=== PATIENT | female | born 1975 | race Caucasian/White ===

== ENCOUNTER 2020-10-15 22:29 | Emergency (ER) | payer BC, SELFPAY ==
[2020-10-15 22:31] VITALS: BP 201/113; PULSE 110; RESP 20; TEMP 37.1; O2SAT 99; BMI 37.5
[2020-10-15 22:34] VITALS: BP 201/113; PULSE 121; O2SAT 96
--- NOTE | 2020-10-15 22:34 | ED.GENADULT ---
HPI - General Adult General Chief complaint: Chest Pain Stated complaint: HEART IS RAISING Time Seen by Provider: 10/15/20 22:34 Source: patient Mode of arrival: Ambulatory Limitations: no limitations History of Present Illness HPI narrative: Patient is a 44-year-old female here for evaluation of 3 days of a jittery feeling and palpitations and lightheadedness. She was seen at her primary doctor where she had an EKG performed. They were concerned about the EKG so they called EMS who performed another EKG and told her to come to the emergency department for evaluation. She denies any chest pain. No shortness of breath but does feel like her heart is racing. She states that it feels like she is just drink a bunch of coffee. Related Data Home Medications Medication Instructions Recorded Confirmed AMINOBENZOIC ACID/BIOTIN/CA (#B 1 cap PO QDAY #0 06/10/12 COMPLEX) CHOLECALCIFEROL (D3-5) 5,000 iu PO QDAY #0 06/10/12 Fish Oil (#EPA FISH OIL) 1,000 mg PO QDAY #0 06/10/12 PROPRANOLOL HCL (Propranolol HCl 80 mg PO QDAY #0 06/10/12 ER) Phenylalanine (#L-PHENYLALANINE) 500 mg PO QDAY #0 06/10/12 Promethazine HCl (#PHENERGAN) 25 mg PO PRN #0 06/10/12 [LOMETRAGEN (GSL)] 200 mg PO QDAY #0 06/10/12 [MAG O7] 1 tab PO QDAY #0 06/10/12 carisoprodol 1 tab PO Q6H PRN #0 06/10/12 clonazepam [Klonopin] 1 tab PO PRN #0 06/10/12 estradiol 0.5 mg PO QDAY #0 06/10/12 magnesium citrate 300 ml PO QDAY #0 06/10/12 omeprazole 1 tab PO BID #0 06/10/12 oxycodone [OxyContin] 30 mg PO Q 3-4H PRN #0 06/10/12 oxycodone-acetaminophen [Endocet] 1 tab PO Q4HP #0 06/10/12 venlafaxine [Effexor XR] 75 mg PO QDAY #0 06/10/12 zolpidem 1 tab PO QHS PRN #0 06/10/12 RED YEAST RICE EXTRACT (Red Yeast 0.4 mg PO QDAY #0 06/15/12 Rice Extract) Allergies Allergy/AdvReac Type Severity Reaction Status Date / Time adhesive Allergy Unknown Unverified 11/17/17 12:59 iodine Allergy Unknown Unverified 11/17/17 12:59 latex Allergy Unknown Unverified 11/17/17 12:59 Review of Systems Constitutional Constitutional: Denies fever(s), Denies headache(s) and Denies weakness Eyes Eyes: Denies change in vision ENT Ears, Nose, Mouth, and Throat: Denies vertigo and Denies headache(s) Cardiovascular Cardiovascular: Denies chest pain, Reports rapid heart rate and Reports dyspnea Respiratory Respiratory: Reports dyspnea Gastrointestinal Gastrointestinal: Denies abdominal pain, Denies nausea and Denies vomiting Musculoskeletal Musculoskeletal: Denies myalgias Integumentary/Breasts Skin/Breast: Denies rash Neurologic Neurologic: Denies confusion, Denies vertigo, Denies headache(s), Reports tremor(s) and Denies weakness Psychiatric Psychiatric: Denies confusion Hematologic/Lymphatic On Anticoagulants: No Patient History Medical History Anxiety Depression Hypertension Social History Smoking Status: Former smoker Exam Initial Vital Signs Initial Vital Signs: Vital Signs Temperature 98.7 F 10/15/20 22:31 Pulse Rate 110 H 10/15/20 22:31 Respiratory Rate 20 10/15/20 22:31 Blood Pressure 201/113 H 10/15/20 22:31 Pulse Oximetry 99 10/15/20 22:31 Const General: cooperative and comfortable Limitations: mental status not altered [facility] Head: normal to inspection and normocephalic Chest Chest: normal inspection of the chest Resp Effort & Inspection: normal respiratory effort Auscultation: clear to auscultation bilaterally Cardio Rate: regular rate Rhythm: regular rhythm GI Inspection: non-distended Palpation: soft Skin Lesions: no lesions Rashes: no rashes Neuro General: patient alert and patient awake Cognition: normal cognition Speech: speech normal Extrem General: normal to inspection and capillary refill normal Psych Appearance: grossly normal and well kempt Course Orders Ordered: ED Orders 10/15/20 22:34 EKG-12 Lead Stat 10/15/20 22:39 Complete Blood Count AUTO DIFF Stat Comprehensive Metabolic Panel Stat 10/15/20 22:40 XR chest 1V Stat Lipase Stat Thyroid Stimulating Hormone Stat Vital Signs Vital signs: Vital Signs - 8 hr 10/15/20 22:31 10/15/20 22:34 10/15/20 22:51 Temperature 98.7 F Pulse Rate 110 H 121 H 93 H Respiratory Rate 20 26 H Blood Pressure 201/113 H 201/113 H 160/96 H Pulse Oximetry 99 96 96 10/15/20 23:00 10/15/20 23:30 10/16/20 00:00 Temperature Pulse Rate 94 H 93 H 98 H Respiratory Rate 19 Blood Pressure 158/98 H 166/96 H 187/116 H Pulse Oximetry 96 97 97 10/16/20 00:26 Temperature 97.9 F Pulse Rate 98 H Respiratory Rate 22 Blood Pressure 187/116 H Pulse Oximetry 97 Medical Decision Making Lab Data Lab results reviewed: Yes I reviewed the patient's lab results. Result diagrams: 10/15/20 22:50 10/15/20 22:50 Labs: Lab Results 10/15/20 10/15/20 10/15/20 Range/Units 22:50 22:50 22:50 WBC 6.1 (4.5-11.0) X10^3/uL RBC 4.14 (4.0-5.2) X10^6/uL Hgb 12.5 (12.0-16.0) g/dL Hct 37.6 (36-46) % MCV 90.9 (80-100) fL MCH 30.1 (26-34) PG MCHC 33.2 (30-36) % RDW 12.5 (11.6-14.8) % Plt Count 266 (150-400) X10^3/uL Neut % (Auto) 50.7 (50-75) % Lymph % (Auto) 41.0 H (25-40) % Terrell % (Auto) 5.8 (3-14) % Eos % (Auto) 1.8 L (2-4) % Baso % (Auto) 0.7 (0-2) % Neut # (Auto) 3100 (6414-3752) /uL Lymph # (Auto) 2500 (3319-7268) /uL Terrell # (Auto) 400 (0-900) /uL Eos # (Auto) 100 (0-450) /uL Baso # (Auto) 0 (0-100) /uL Sodium 140 (137-145) mmol/L Potassium 3.5 (3.4-5.1) mmol/L Chloride 103 (98-107) mmol/L Carbon Dioxide 28 (22-32) mmol/L BUN 15 (7-17) mg/dL Creatinine 0.63 (0.52-1.04) mg/dL Estimated GFR > 60.0 (>60) mL/min BUN/Creatinine Ratio 23.8 H (6-22) Glucose 120 H (70-100) mg/dL Calcium 9.4 (8.4-10.2) mg/dL Total Bilirubin 0.3 (0.2-1.3) mg/dL AST 37 H (14-36) IU/L ALT 25 (<35) IU/L Alkaline Phosphatase 114 (38-126) U/L Total Protein 8.7 H (6.3-8.2) g/dL Albumin 4.9 (3.5-5.0) g/dL Globulin 3.8 (1.7-4.1) g/dL Albumin/Globulin Ratio 1.3 (1.0-2.8) Lipase 87 (23-300) U/L TSH (0.47-4.68) uIU/mL 10/15/20 Range/Units 22:50 WBC (4.5-11.0) X10^3/uL RBC (4.0-5.2) X10^6/uL Hgb (12.0-16.0) g/dL Hct (36-46) % MCV (80-100) fL MCH (26-34) PG MCHC (30-36) % RDW (11.6-14.8) % Plt Count (150-400) X10^3/uL Neut % (Auto) (50-75) % Lymph % (Auto) (25-40) % Terrell % (Auto) (3-14) % Eos % (Auto) (2-4) % Baso % (Auto) (0-2) % Neut # (Auto) (6760-6769) /uL Lymph # (Auto) (9378-8299) /uL Terrell # (Auto) (0-900) /uL Eos # (Auto) (0-450) /uL Baso # (Auto) (0-100) /uL Sodium (137-145) mmol/L Potassium (3.4-5.1) mmol/L Chloride (98-107) mmol/L Carbon Dioxide (22-32) mmol/L BUN (7-17) mg/dL Creatinine (0.52-1.04) mg/dL Estimated GFR (>60) mL/min BUN/Creatinine Ratio (6-22) Glucose (70-100) mg/dL Calcium (8.4-10.2) mg/dL Total Bilirubin (0.2-1.3) mg/dL AST (14-36) IU/L ALT (<35) IU/L Alkaline Phosphatase (38-126) U/L Total Protein (6.3-8.2) g/dL Albumin (3.5-5.0) g/dL Globulin (1.7-4.1) g/dL Albumin/Globulin Ratio (1.0-2.8) Lipase (23-300) U/L TSH 2.86 (0.47-4.68) uIU/mL Imaging Data Chest x-ray: Attestation: I personally reviewed and interpreted this imaging study as follows: My Impression: No acute changes ECG Data Attestation: I personally reviewed and interpreted this ECG as follows: Prior ECG tracings: not available for review Interpretation: Sinus rhythm Ventricular rate 100 Normal axis Normal QRS Normal QTC Nonspecific ST T wave changes MDM Narrative Medical decision making narrative: Patient's workup here in the emergency department is unremarkable. I do have a high suspicion that her symptoms are anxiety related. Does not appear to be a toxic effect. Low suspicion for ACS. Low suspicion for CVA. Do feel we can hold on further workup for now. Patient can be safely discharged home with follow-up with her primary doctor. She was given return precautions. She expressed understanding and agreement. Discharge Plan Departure Patient Disposition: Home Clinical Impression: Jittery feeling, Palpitation Instructions: DI for Anxiety -- Adult Activity Restrictions/Additional Instructions: I hope that it is reassuring that your workup here in the emergency department is very reassuring. I recommend that you continue all of your medications as directed and tomorrow contact your primary provider for a follow-up. Return to the emergency department for any new or worsening symptoms Prescriptions: No Action carisoprodol 350 MG tablet 1 tab PO Q6H PRN Qty: 0 RF: 0 Promethazine HCl (#PHENERGAN) 25 mg PO PRN Qty: 0 RF: 0 clonazepam [Klonopin] 1 MG tablet 1 tab PO PRN Qty: 0 RF: 0 omeprazole 40 MG capsule,delayed release(DR/EC) 1 tab PO BID Qty: 0 RF: 0 oxycodone-acetaminophen [Endocet] 10 MG/325 MG tablet 1 tab PO Q4HP Qty: 0 RF: 0 zolpidem 10 MG tablet 1 tab PO QHS PRN Qty: 0 RF: 0 venlafaxine [Effexor XR] 75 MG capsule,extended release 24hr 75 mg PO QDAY Qty: 0 RF: 0 oxycodone [OxyContin] 30 MG tablet,oral only,ext.rel.12 hr 30 mg PO Q 3-4H PRN Qty: 0 RF: 0 estradiol 0.5 MG tablet 0.5 mg PO QDAY Qty: 0 RF: 0 PROPRANOLOL HCL (Propranolol HCl ER) 80 mg PO QDAY Qty: 0 RF: 0 Phenylalanine (#L-PHENYLALANINE) 500 mg PO QDAY Qty: 0 RF: 0 AMINOBENZOIC ACID/BIOTIN/CA (#B COMPLEX) 1 cap PO QDAY Qty: 0 RF: 0 CHOLECALCIFEROL (D3-5) 5,000 iu PO QDAY Qty: 0 RF: 0 [LOMETRAGEN (GSL)] 200 mg PO QDAY Qty: 0 RF: 0 magnesium citrate 296 ML solution 300 ml PO QDAY Qty: 0 RF: 0 [MAG O7] 1 tab PO QDAY Qty: 0 RF: 0 Fish Oil (#EPA FISH OIL) 1,000 mg PO QDAY Qty: 0 RF: 0 RED YEAST RICE EXTRACT (Red Yeast Rice Extract) 0.4 mg PO QDAY Qty: 0 RF: 0 Referrals: Alexys Suh MD [Primary Care Provider] -
--- NOTE | 2020-10-15 22:40 | DI.RAD.S_ITS ---
PROCEDURE: XR CHEST 1V INDICATIONS: SOB TECHNIQUE: One view of the chest was acquired. COMPARISON: None. FINDINGS: Surgical changes and devices: None. Lungs and pleura: Lungs are clear. No pleural effusions or pneumothorax. Mediastinum: Mediastinal contours appear normal. Heart size is mildly enlarged. Bones and chest wall: No suspicious bony lesions. Overlying soft tissues appear unremarkable. IMPRESSION: No acute pulmonary process. Dictated by: Petty Diaz M.D. on 10/16/2020 at 9:21 Approved by: Petty Diaz M.D. on 10/16/2020 at 9:22
[2020-10-15 22:51] VITALS: BP 160/96; PULSE 93; RESP 26; O2SAT 96
[2020-10-15 22:59] LABS: Add Manual Diff / Slide Review NO; Basophils Absolute Auto 0 /uL (0-100); Basophils Percent Auto 0.7 % (0-2); Eosinophils Absolute Auto 100 /uL (0-450); Eosinophils Percent Auto 1.8 % (2-4); Hematocrit 37.6 % (36-46); Hemoglobin 12.5 g/dL (12.0-16.0); Lymphocytes Absolute Auto 2500 /uL (1100-4500); Mean Corpuscular HGB Conc 33.2 % (30-36); Mean Corpuscular Hemoglobin 30.1 PG (26-34); Mean Corpuscular Volume 90.9 fL (80-100); Monocytes Absolute Auto 400 /uL (0-900); Monocytes Percent Auto 5.8 % (3-14); Neutrophils Absolute Auto 3100 /uL (1500-7000); Neutrophils Percent Auto 50.7 % (50-75); Platelet Count 266 X10^3/uL (150-400); Red Blood Cell Count 4.14 X10^6/uL (4.0-5.2); Red Cell Distribution Width 12.5 % (11.6-14.8); White Blood Cell Count 6.1 X10^3/uL (4.5-11.0)
[2020-10-15 23:00] VITALS: BP 158/98; PULSE 94; O2SAT 96
[2020-10-15 23:08] LABS: Lipase 87 U/L (23-300)
[2020-10-15 23:10] LABS: Alanine Aminotransferase 25 IU/L (<35); Albumin 4.9 g/dL (3.5-5.0); Albumin Globulin Ratio 1.3 (1.0-2.8); Alkaline Phosphatase 114 U/L (38-126); Aspartate Aminotransferase 37 IU/L (14-36); BUN Creatinine Ratio 23.8 (6-22); Bilirubin Total 0.3 mg/dL (0.2-1.3); Blood Urea Nitrogen 15 mg/dL (7-17); Calcium 9.4 mg/dL (8.4-10.2); Carbon Dioxide 28 mmol/L (22-32); Chloride 103 mmol/L (98-107); Estimated Glomerular Filt Rate > 60.0 mL/min (>60); Globulin 3.8 g/dL (1.7-4.1); Glucose 120 mg/dL (70-100); HEMOLYSIS 19 (0-50); Potassium 3.5 mmol/L (3.4-5.1); Sodium 140 mmol/L (137-145); Total Protein 8.7 g/dL (6.3-8.2)
[2020-10-15 23:30] VITALS: BP 166/96; PULSE 93; RESP 19; O2SAT 97
[2020-10-15 23:45] LABS: Thyroid Stimulating Hormone 2.86 uIU/mL (0.47-4.68)
[2020-10-16] VITALS: BP 187/116; PULSE 98; O2SAT 97
[2020-10-16 00:26] VITALS: BP 187/116; PULSE 98; RESP 22; TEMP 36.6; O2SAT 97
== END 2020-10-16 00:30 | disposition home or self-care (01) ==
PROVIDERS: Emergency Provider Emergency Medicine; Family Provider Family Medicine; PCP Family Medicine
DX: R00.2 Palpitations (principal); R45.0 Nervousness; R42 Dizziness and giddiness
CPT/HCPCS: 36415; 71045; 80053; 83690; 84443; 85025; 93005; 99283; 99284